=== PATIENT | male | born 1940 | race Caucasian/White ===

== ENCOUNTER → 2016-12-16 | Outpatient (CLI) | payer OTHER ==
[~2016-12-16] MED LIST: GADOBUTROL 10 ML VIAL IVP ONE
[2016-12-16 14:36] LABS: CREATININE 0.8 mg/dL (0.7-1.3); GLOMERULAR FILTRATION RATE > 60
== END ==
LOC: FIMAGING 13:36
PROVIDERS: ATTEND Family Medicine
DX: R41.3 Other amnesia (principal)
CPT/HCPCS: 70553; A9585

== ENCOUNTER 2017-11-11 10:38 | Observation (INO) | payer OTHER ==
--- NOTE | 2017-11-11 11:03 | CPEKG ---
Heart Rate: 97 RR Interval: 619 QRSD Interval: 100 QT Interval: 356 QTC Interval: 452 QRS [place]: 41 T Wave [place]: 44 EKG Severity - ABNORMAL ECG - EKG Impression: ATRIAL FIBRILLATION, V-RATE 91-104 EKG Impression: PROBABLE POSTERIOR INFARCT Electronically Signed By: Maine Clarke 11-Nov-2017 20:58:21
[2017-11-11 11:23] LABS: PLATELET COUNT 197 10^3/uL (150-400)
[2017-11-11] MEDS ORDERED: ASPIRIN 81 MG CHEWABLE TAB PO ONE (12:14)
[2017-11-11] MEDS ORDERED: ASPIRIN 81 MG CHEWABLE TAB ONE (12:15)
--- NOTE | 2017-11-11 13:03 | EDPHY ---
H & P Stated Complaint: felt faint /dizzy on golf [place]/resolved now - Personal History Current Tetanus/Diphtheria Vaccine: Yes Tetanus Vaccine Date: 2004 - Medical/Surgical History Hx Asthma: No Hx Chronic Respiratory Disease: No Hx Diabetes: No Hx Cardiac Disease: No Hx Renal Disease: No Hx Cirrhosis: No Hx Alcoholism: No Hx HIV/AIDS: No Hx Splenectomy or Spleen Trauma: No Other PMH: knee surgery - Social History Smoking Status: Former smoker Time Seen by Provider: 11/11/17 11:27 HPI/ROS: Chief complaint: Dizziness History of present illness: This is a 77-year-old male who presents to the emergency department for evaluation of dizziness. Patient was in his usual state of health this morning. He got up, he skipped breakfast and went to play golf. Shortly into his game he started to feel lightheaded and almost fell over. This happened a 2nd time. He sat down and was eventually brought to the emergency department. On my evaluation he states he feels well. He has no symptoms. No report of headache, no chest pain, no shortness of breath, no pain or swelling in the legs. Review of systems: 10 point review of systems was obtained and other than described above was negative (Corona Basurto) - Physical Exam Exam: General Appearance: Alert, no distress. Eyes: Pupils equal and round no pallor or injection. ENT, Mouth: Mucous membranes moist. Respiratory: There are no retractions, lungs are clear to auscultation. Cardiovascular: Irregular rhythm, normal rate. Gastrointestinal: Abdomen is soft and non tender, no masses, bowel sounds normal. Neurological: Alert and oriented x4. Cranial nerves 2-12 grossly intact. Strength and sensation intact and symmetrical. Skin: Warm and dry, no rashes. Musculoskeletal: Neck is supple non tender. Extremities are symmetrical, full range of motion. Psychiatric: Patient is oriented X 3, there is no agitation. (Corona Basurto) Constitutional: Initial Vital Signs Temperature (C) 36.7 C 11/11/17 10:43 Heart Rate 70 11/11/17 10:43 Respiratory Rate 16 11/11/17 10:43 Blood Pressure 125/96 H 11/11/17 10:43 O2 Sat (%) 94 11/11/17 10:43 O2 Delivery Mode Room Air Allergies/Adverse Reactions: CITRUS Allergy (Intermediate, Uncoded 11/11/17 10:42) SNEEZE WINE Allergy (Intermediate, Uncoded 11/11/17 10:42) SNEEZE Home Medications: Medication Instructions Recorded Donepezil HCl [Aricept 5 MG (*)] 5 mg PO DAILY 11/11/17 Herbals/Supplements -Info Only 1 ea PO DAILY 11/11/17 Medical Decision Making ED Course/Re-evaluation: Patient discussed with my secondary supervising physician Dr. Alem Quan. Patient presents to the emergency department essentially with 2 episodes of near -syncope. He is nontoxic. He appears to be in new onset AFib. Initially he is rate controlled. However, his rate is increasing in the emergency room. He is given an aspirin. He will be admitted to Dr. Olivia Cramer to telemetry for further care. The plan has been discussed with the patient who voiced understanding and agreement with it. (Corona Basurto) Differential Diagnosis: Included but limited to hypoglycemia, dehydration, electrolyte abnormality, dehydration, cardiac disturbances/ACS, CVA (Corona Basurto) Other Provider: The patient was evaluated and managed by the Physician Healthcare Administrator. I discussed the patient's presentation and course with the midlevel provider with them and agree with the evaluation. My co-signature indicates that I have reviewed this chart and I agree with the findings and plan of care as documented. I am the secondary supervising physician. (Alem Quan) - Data Points Laboratory Results: Laboratory Results 11/11/17 11:10 11/11/17 11:10 11/11/17 11/11/17 11:10 11:10 WBC 4.55 10^3/uL 10^3/uL (3.80-9.50) RBC 4.29 10^6/uL L 10^6/uL (4.40-6.38) Hgb 14.4 g/dL g/dL (13.7-17.5) Hct 41.6 % % (40.0-51.0) MCV 97.0 fL fL (81.5-99.8) MCH 33.6 pg pg (27.9-34.1) MCHC 34.6 g/dL g/dL (32.4-36.7) RDW 13.2 % % (11.5-15.2) Plt Count 197 10^3/uL 10^3/uL (150-400) MPV 10.0 fL fL (8.7-11.7) Neut % (Auto) 65.7 % % (39.3-74.2) Lymph % (Auto) 22.6 % % (15.0-45.0) [place] % (Auto) 7.5 % % (4.5-13.0) Eos % (Auto) 2.2 % % (0.6-7.6) Baso % (Auto) 0.7 % % (0.3-1.7) Nucleat RBC Rel Count 0.0 % % (0.0-0.2) Absolute Neuts (auto) 2.99 10^3/uL 10^3/uL (1.70-6.50) Absolute Lymphs (auto) 1.03 10^3/uL 10^3/uL (1.00-3.00) Absolute Monos (auto) 0.34 10^3/uL 10^3/uL (0.30-0.80) Absolute Eos (auto) 0.10 10^3/uL 10^3/uL (0.03-0.40) Absolute Basos (auto) 0.03 10^3/uL 10^3/uL (0.02-0.10) Absolute Nucleated RBC 0.00 10^3/uL 10^3/uL (0-0.01) Immature Gran % 1.3 % H % (0.0-1.1) Immature Gran # 0.06 10^3/uL 10^3/uL (0.00-0.10) Sodium 138 mEq/L mEq/L (135-145) Potassium 4.3 mEq/L mEq/L (3.5-5.2) Chloride 102 mEq/L mEq/L (97-110) Carbon Dioxide 25 mEq/l mEq/l (22-31) Anion Gap 11 mEq/L mEq/L (8-16) BUN 18 mg/dL mg/dL (7-23) Creatinine 0.8 mg/dL mg/dL (0.7-1.3) Estimated GFR > 60 Glucose 94 mg/dL mg/dL (70-100) Calcium 9.3 mg/dL mg/dL (8.5-10.4) Troponin I < 0.012 ng/mL ng/mL (0.000-0.034) Medications Given: Diltiazem/Dextrose (Diltiazem 125mg/125ml (Premix)) 125 mls @ 0 mls/hr IV CONT NIYA; Titrate PRN Reason: Protocol Stop: 05/10/18 14:59 Last Admin: 11/11/17 16:28 Dose: 125 mls Discontinued Medications Aspirin (Aspirin) 324 mg PO EDNOW ONE Stop: 11/11/17 12:15 Last Admin: 11/11/17 12:15 Dose: 324 mg Sodium Chloride (Ns) 1,000 mls @ 3,000 mls/hr IV ONCE ONE Stop: 11/11/17 14:18 Last Admin: 11/11/17 14:56 Dose: 1,000 mls Departure - Departure Disposition: [facility] Inpatient Acute Clinical Impression: Afib Qualifiers: Atrial fibrillation type: unspecified Qualified Code(s): I48.91 - Unspecified atrial fibrillation Condition: Good
[2017-11-11] MEDS ORDERED: ACETAMINOPHEN 325 MG TAB PO PRN (13:59)
[2017-11-11] MEDS ORDERED: ONDANSETRON 4 MG/2 ML VIAL IVP PRN (13:59)
[2017-11-11] MEDS ORDERED: NS 1,000 ML IV ONE (13:59)
[2017-11-11] MEDS ORDERED: ONDANSETRON DISINTEGRATING 4 MG TAB PO PRN (13:59)
[2017-11-11] MEDS ORDERED: DILTIAZEM 125 MG in D5W 125 ML IV SCH (14:30)
[2017-11-11] MEDS ORDERED: DILTIAZEM HCL/D5W 125 ML IV SCH (15:00)
--- NOTE | 2017-11-11 17:01 | ECHO ---
[email or web address] [address] [address] Main: [phone] Fax: Transthoracic Echocardiogram Name: JOY ESCOBEDO MR#: [id number] Study Date: 11/11/2017 Study Time: 03:00 PM Date of : 1940 Age: 77 year(s) Height: 195.6 cm (77 in.) Weight: 115.67 kg (255 lb.) BSA: 2.48 m2 Gender: Male Examination: Echo Indication: New onset Atrial Fibrillation Image Quality: Contrast: Requested by: Olivia Cramer BP: 138 mmHg/83 mmHg Heart Rate: Rhythm: Atrial fibrillation Indication: New onset Atrial Fibrillation Procedure Staff Collector Of Port: Michael Alfaro RDCS Reading Physician: Franki Santa MD Requesting Provider: Conclusions: Normal size left ventricle. Borderline concentric LV hypertrophy. EF is 60 %. The mitral valve is normal in appearance and function. The aortic valve is normal in appearance. Trivial aortic valve regurgitation. No aortic valve stenosis is present. The pulmonary artery pressure is normal. No old studies for comparison. Measurements: Chambers Valvular Assessment AV/MV Valvular Assessment TV/PV Normal Normal Normal Name Value Range Name Value Range Name Value Range Ao Isamar (MM): 4.3 cm (2.2 cm-3.7 AV Vmax: 0.85 m/s (1 m/s-1.7 TR Vmax: 2.44 mm/s ( - ) cm) m/s) TR PGmax: 24 mmHg ( - ) IVSd (2D): 1.4 cm (0.6 cm-1.1 AV maxP mmHg ( - ) syst. PAP: 29 mmHg ( - ) cm) LVOT Vmax: 0.87 m/s (0.7 m/s-1.1 PV Vmax: 0.83 m/s (0.6 m/s-0.9 LVDd (2D): 4.6 cm (4.2 cm-5.9 m/s) m/s) cm) MV E Vmax: 0.42 m/s ( - ) PV PGmax: 3 mmHg ( - ) LVDs (2D): 3.1 cm (2.1 cm-4 MV A Vmax: 0.57 m/s ( - ) cm) MV E/A: 0.74 ( - ) LVPWd (2D): 1.2 cm (0.6 cm-1 cm) LVEF (2D): 60 (>=54 %) RVDd(2D): 4.1 cm (1.9 cm-3.8 cmmm) Continued Measurements: Chambers Valvular Assessment AV/MV Valvular Assessment TV/PV Patient: JOY ESCOBEDO Study Date: 11/11/2017 Page 1 of 2 03:00 PM Name Value Name Value Name Value LADs Lon.5 cm MV E' Septal: 0.07 m/s CVP (est.): 5 mmHg LA Area: 23.9 cm2 MV E/E' Septal: 6.00 LA Volume: 76 ml LA Volume Index: 30.6 ml/m2 Findings: Left Ventricle: Normal size left ventricle. Borderline concentric LV hypertrophy. Normal global systolic LV function. EF is 60 %. No regional wall motion abnormality. Diastolic dysfunction is present. . The rhythm is atrial fibrillation.. Right Ventricle: Normal size right ventricle. Left Atrium: The left atrium is normal in size. Right Atrium: The right atrium is normal in size. Mitral Valve: The mitral valve is normal in appearance and function. There is no mitral valve regurgitation. Aortic Valve: The aortic valve is normal in appearance. Trivial aortic valve regurgitation. No aortic valve stenosis is present. Tricuspid Valve: The tricuspid valve is normal in appearance and function. Mild tricuspid regurgitation is present. The pulmonary artery pressure is normal. Pulmonic Valve: The pulmonic valve is normal in appearance and function. Aorta: The aorta is normal. Pericardium: No pericardial effusion. There is pericardial fat. (No Signature Object) Patient: JOY ESCOBEDO Study Date: 11/11/2017 Page 2 of 2 03:00 PM [id number]
[2017-11-12 04:14] LABS: PLATELET COUNT 186 10^3/uL (150-400)
[2017-11-12 08:21] VITALS: RESP 18; TEMP 98.3; O2SAT 92
[2017-11-12] MEDS ORDERED: DONEPEZIL HCL 5 MG TAB PO SCH (09:00)
[2017-11-12] MEDS ORDERED: Herbals/Supplements -Info Only PO SCH (09:00)
[2017-11-12] MEDS ORDERED: ENOXAPARIN 40 MG/0.4 ML SYR SC SCH (09:00)
[2017-11-12] MEDS ORDERED: DILTIAZEM 30 MG TAB PO SCH (09:12)
[2017-11-12] MEDS ORDERED: ASPIRIN 81 MG CHEWABLE TAB PO SCH (09:15)
[2017-11-12 10:03] VITALS: BP 137/92; PULSE 78
--- NOTE | 2017-11-12 17:17 | GDS ---
[f rep st] DISCHARGE SUMMARY DISCHARGE DIAGNOSES: Include: 1. Presyncope. 2. New diagnosis atrial fibrillation. HISTORY OF PRESENT ILLNESS: A 77-year-old male who presents with complaints of presyncopal symptoms while golfing. For details of patient's initial presentation, please see the History and Physical da eli 11/11/2017. CONSULTATIVE SERVICES: Cardiology. PROCEDURES: On 11/11/2017 patient had a transthoracic echocardiogram that shows normal LV size and f unction with borderline concentric LVH. HOSPITAL COURSE: By issue: 1. Atrial fibrillation: Patient did not present with markedly elevated ventricular rates, peaking i n the emergency department in the 120s. He was admitted to the PCU on telemetry, started on a diltia zem drip at a low dose, and did not convert overnight. After discussion with Cardiology and review o f his echocardiogram, the decision was made to treat the patient based on his [id number] score with aspirin and initiate low-dose oral diltiazem at 30 mg b.i.d. he will be sent with a Holter monitor in his home and followed in the outpatient cardiology clinic at the completion of that 1-month monito r for review of his rhythm, as well as discussions about long-term anticoagulation and rate control m edications. 2. Mild dehydration: Patient received fluid resuscitation overnight and has had counseling regardin g maintaining hydration at home. MEDICATIONS AT DISPOSITION: Please reference the medication reconciliation printed on 11/12/2017. FOLLOWUP APPOINTMENTS: Include with Joanne Mendoza after completion of his Holter monitor, as well as with his primary care provider as needed for ongoing management of his medical comorbidities. TIME SPENT: I spent greater than 30 minutes in the planning and coordination of this discharge. /[id number]/MODL
== END 2017-11-12 11:14 | disposition home or self-care (01) ==
LOC: INTOOBSV 12:26 → F2W 13:40
PROVIDERS: ADMIT Hospitalist; ATTEND Hospitalist
PROC: 3E033RZ Introduction of Antiarrhythmic into Peripheral Vein, Percutaneous Approach (ICD-10-PCS; principal; 2017-11-11)
DX: R55 Syncope and collapse (principal); I48.91 Unspecified atrial fibrillation; E86.0 Dehydration; Z87.891 Personal history of nicotine dependence
CPT/HCPCS: 93005; 93306; 99285; G0378; J1650

== ENCOUNTER 2018-03-26 07:29 | Day surgery (SDC) | payer OTHER ==
[2018-03-26] MEDS ORDERED: NS 1,000 ML IV ONE (08:12)
[2018-03-26] MEDS ORDERED: ATROPINE SULFATE 1 MG/10 ML SYR IVP ONE (08:12)
--- NOTE | 2018-03-26 08:17 | CPEKG ---
Heart Rate: 82 RR Interval: 732 QRSD Interval: 104 QT Interval: 392 QTC Interval: 458 QRS [place]: 37 T Wave [place]: 46 EKG Severity - ABNORMAL ECG - EKG Impression: ATRIAL FIBRILLATION, V-RATE 61-104 EKG Impression: PROBABLE POSTERIOR INFARCT Electronically Signed By: Maksim Menchaca 26-Mar-2018 08:19:31
[2018-03-26 08:41] LABS: INR 1.29 (0.83-1.16); PROTIME(PATIENT) 16.3 SEC (12.0-15.0)
--- NOTE | 2018-03-26 08:49 | PDHPUP ---
History & Physical Update H&P update statement: This history and physical update is based on an assessment of the patient which was completed after admission or registration (within 24 hours), but prior to the surgery/procedure. H&P update: H&P reviewed & patient examined, no change in patient's condition since H&P completed
[2018-03-26] MEDS ORDERED: PROPOFOL 200 MG/20 ML VIAL ONE (08:53)
--- NOTE | 2018-03-26 08:56 | POSTANESTH ---
Post Anesthetic Evaluation Cardiovascular Status: Similar to Pre-Op Cond Respiratory Status: Normal, Stable, Similar to Pre-op Cond. Level of Consciousness/Mental Status: Can Participate in Eval, Mildly Sleepy, Arousable Pain Control: Adequate, Prn Tx Ordered Nausea/Vomiting Control: Adequate, Prn Tx Ordered Complications Possibly Related to Anesthesia: None Noted
--- NOTE | 2018-03-26 08:56 | PDANEPAE ---
ANE History of Present Illness TREVER CV ANE Past Medical History - Cardiovascular History Hx Hypertension: No Hx Arrhythmias: Yes Hx Coronary Artery / Peripheral Vascular Disease: No Hx CHF / Valvular Disease: No - Pulmonary History Hx COPD: No Hx Asthma/Reactive Airway Disease: No Hx Recent Upper Respiratory Infection: No Hx Oxygen in Use at Home: No Hx Sleep Apnea: No - Neurologic History Hx Cerebrovascular Accident: No Hx Seizures: No Hx Dementia: No - Endocrine History Hx Diabetes: No - Renal History Hx Renal Disorders: No - Liver History Hx Hepatic Disorders: No - Neurological & Psychiatric Hx Hx Neurological and Psychiatric Disorders: No - Cancer History Hx Cancer: Yes Cancer History Comment: SKIN CANCER - Congenital Disorder History Hx Congenital Disorders: No - GI History Hx Gastrointestinal Disorders: No - Other Health History Other Health History: NEG - Chronic Pain History Chronic Pain: No (KNEES) - Surgical History Prior Surgeries: R KNEE REPLACEMENT 2013. APPENDECTOMY. FX LEG ANE Review of Systems Review of systems is: negative Review of Systems: - Exercise capacity METS (RN): 4 METS ANE Patient History - Allergies Allergies/Adverse Reactions: CITRUS Allergy (Intermediate, Uncoded 11/11/17 10:42) SNEEZE WINE Allergy (Intermediate, Uncoded 11/11/17 10:42) SNEEZE - Home Medications Home medications: home medication list seen and reviewed Home Medications: Donepezil HCl [Aricept 5 MG (*)] 5 mg PO DAILY 11/11/17 [Last Taken 11/11/17] Herbals/Supplements -Info Only 1 ea PO DAILY 11/11/17 [Last Taken Unknown] - NPO status NPO Status: no food or drink >8 hours - Anes Hx Anes Hx: no prior problems - Smoking Hx Smoking Status: Former smoker - Family Anes Hx Family Anes Hx: none ANE Labs/Vital Signs - Labs Result Diagrams: 03/26/18 08:25 - Vital Signs Vital Signs: reviewed preoperatively; see RN documention for details Height: 196 cm Weight: 113.1 kg ANE Physical Exam - Airway Neck exam: FROM Mallampati Score: Class 1 Mouth exam: poor dentition - Pulmonary Pulmonary: no respiratory distress - Cardiovascular Cardiovascular: irregularly irregular - ASA Status ASA Status: II
--- NOTE | 2018-03-26 09:20 | CPEKG ---
Heart Rate: 82 RR Interval: 732 P-R Interval: 232 QRSD Interval: 102 QT Interval: 396 QTC Interval: 463 P [place]: 6 QRS [place]: 17 T Wave [place]: 40 EKG Severity - ABNORMAL ECG - EKG Impression: SINUS RHYTHM EKG Impression: FIRST DEGREE AV BLOCK Electronically Signed By: Maksim Menchaca 26-Mar-2018 13:24:07
== END 2018-03-26 10:30 | disposition home or self-care (01) ==
LOC: FCATH 07:29
PROVIDERS: ATTEND Internal Medicine
PROC: B245ZZ4 Ultrasonography of Left Heart, Transesophageal (ICD-10-PCS; principal; 2018-03-26)
PROC: 5A2204Z Restoration of Cardiac Rhythm, Single (ICD-10-PCS; principal; 2018-03-26)
DX: I48.0 Paroxysmal atrial fibrillation (principal); Z85.828 Personal history of other malignant neoplasm of skin; Z79.01 Long term (current) use of anticoagulants
CPT/HCPCS: J0461; J2704

== ENCOUNTER → 2018-06-18 | Outpatient (CLI) | payer OTHER | LOC: FIMAGING 14:54 | PROVIDERS: ATTEND Internal Medicine Cardiovascular Disease | DX: J44.9 Chronic obstructive pulmonary disease, unspecified (principal); I48.91 Unspecified atrial fibrillation | CPT/HCPCS: 84481-90 ==

== ENCOUNTER 2018-10-06 09:35 | Inpatient (IN) | payer OTHER ==
--- NOTE | 2018-10-06 09:42 | EDPHY ---
H & P Time Seen by Provider: 10/06/18 09:41 HPI/ROS: CHIEF COMPLAINT: Chills vomiting increasing confusion HISTORY OF PRESENT ILLNESS: History of atrial fibrillation on Eliquis. Was seen by his son this morning to be shaky and having chills around 8:00 a.m., when he was at a ceremony for college signing for his grandson. He had episode of vomiting then and says he now feels no nausea. He does feels heart racing. His nausea was better after vomiting. No diarrhea or abdominal pain. No headache or urinary symptoms or chest pain or shortness of breath. He has been described by his son as being a little bit more confused over the last 10 days. No injury or head trauma. REVIEW OF SYSTEMS: Eye: no change in vision ENT: no sore throat Cardiac: Palpitations but no chest pain Pulmonary: no cough or SOB Abdomen: HPI Musculoskeletal: no back pain Skin: no rash Neuro: no headache Constitutional: Shaking earlier : no urinary symptoms A comprehensive 10 point review of systems is otherwise negative aside from elements mentioned in the history of present illness. 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 Eyes: No scleral icterus. ENT, Mouth: Dry mucous membranes. Respiratory: Normal respiratory effort, breath sounds equal, lungs are clear to auscultation. Cardiovascular: Irregular and tachycardic Gastrointestinal: Abdomen is soft and non tender. Neurological: Alert, face symmetric, normal motor and sensory in extremities. Patient is normally conversant, although he does not fully remember the events of this morning. Appears to have some short-term memory deficits. Skin: Warm and dry, no rashes. Musculoskeletal: No peripheral edema. Normal range of motion of the neck. Psychiatric: Not agitated. Emergency Department course/MDM: CT head for confusion with a patient on Eliquis. Tachycardic in atrial fibrillation, will hydrate with IV fluids and start diltiazem drip. With shaking and chills would suspect possible infection will get chest x-ray urinalysis and labs. 1046: Negative head CT per Dr. Jaffe. Ceftriaxone and azithromycin for infiltrate on chest x-ray. Had single episode of blood pressure less than 90, but none subsequently. Did not have SIRS criteria: WBC less than 12, not tachypneic, not febrile, but is tachycardic. Smoking Status: Former smoker Constitutional: Initial Vital Signs Temperature (C) 36.8 C 10/06/18 09:37 Heart Rate 88 10/06/18 09:37 Respiratory Rate 18 10/06/18 09:37 Blood Pressure 107/76 10/06/18 09:37 O2 Sat (%) 94 10/06/18 09:37 O2 Delivery Mode Room Air Allergies/Adverse Reactions: CITRUS Allergy (Intermediate, Uncoded 10/06/18 09:36) SNEEZE WINE Allergy (Intermediate, Uncoded 10/06/18 09:36) SNEEZE Home Medications: Medication Instructions Recorded Donepezil HCl [Aricept 5 MG (*)] 10 mg PO HS 11/11/17 Herbals/Supplements -Info Only 1 ea PO DAILY 11/11/17 Apixaban [Eliquis] 5 mg PO BID #14 tab 03/20/18 [place]-3 Fatty Acids [Fish Oil 1000 1,000 mg PO DAILY 10/06/18 mg (*)] Medical Decision Making - Diagnostics EKG Interpretation: 12-lead EKG interpreted by me; official reading is in computer system. My interpretation is atrial fibrillation rate 117 without ischemic changes. Imaging Results: Imaging Impressions Chest X-Ray 10/06/18 09:55 Impression: Lower lung opacity, atelectasis or pneumonia. Results discussed with KIRSTEN SOLORIO M.D. on 10/06/2018 at 10:40.. Head CT 10/06/18 09:55 Impression: 1. No acute intracranial process. 2. Age-appropriate generalized cerebral volume loss with sequela of chronic microvascular ischemic disease. Findings and recommendations discussed with KIRSTEN SOLORIO at 1046 hour, 10/06/2018. Imaging: Discussed imaging studies w/ scallop dredger Radiologist Consult/Admit Bed Type: [place] [id number] Kidd Critical Care Time: Critical care time spent by me, Dr. Solorio, exclusively with the care of this patient was 40 minutes, exclusive of PA or OFFICE SUPERVISOR time and exclusive of separate procedures. The organ system at risk was infectious and cardiovascular and I ordered IV fluids and antibiotics, multiple diagnostics, IV diltiazem and cardiac monitoring to stabilize the patient and prevent worsening of the patient 's condition. - Data Points Laboratory Results: Laboratory Results 10/06/18 09:50 10/06/18 09:50 10/06/18 10/06/18 10/06/18 09:53 09:50 09:50 WBC RBC Hgb Hct MCV MCH MCHC RDW Plt Count MPV Neut % (Auto) Lymph % (Auto) [place] % (Auto) Eos % (Auto) Baso % (Auto) Nucleat RBC Rel Count Absolute Neuts (auto) Absolute Lymphs (auto) Absolute Monos (auto) Absolute Eos (auto) Absolute Basos (auto) Absolute Nucleated RBC Immature Gran % Immature Gran # RBC/WBC/PLT Morphology Platelet Estimate PT 17.1 SEC H SEC (12.0-15.0) INR 1.38 H (0.83-1.16) APTT 29.1 SEC SEC (23.0-38.0) Sodium Potassium Chloride Carbon Dioxide Anion Gap BUN Creatinine Estimated GFR Glucose Calcium Total Bilirubin 2.0 mg/dL H mg/dL (0.1-1.4) POC Troponin I 0.00 ng/mL ng/mL (0.00-0.08) 10/06/18 10/06/18 09:50 09:50 WBC 11.28 10^3/uL H 10^3/uL (3.80-9.50) RBC 4.43 10^6/uL 10^6/uL (4.40-6.38) Hgb 14.6 g/dL g/dL (13.7-17.5) Hct 44.0 % % (40.0-51.0) MCV 99.3 fL fL (81.5-99.8) MCH 33.0 pg pg (27.9-34.1) MCHC 33.2 g/dL g/dL (32.4-36.7) RDW 13.3 % % (11.5-15.2) Plt Count 199 10^3/uL 10^3/uL (150-400) MPV 10.2 fL fL (8.7-11.7) Neut % (Auto) 87.1 % H % (39.3-74.2) Lymph % (Auto) 3.9 % L % (15.0-45.0) [place] % (Auto) 7.4 % % (4.5-13.0) Eos % (Auto) 0.4 % L % (0.6-7.6) Baso % (Auto) 0.4 % % (0.3-1.7) Nucleat RBC Rel Count 0.0 % % (0.0-0.2) Absolute Neuts (auto) 9.82 10^3/uL H 10^3/uL (1.70-6.50) Absolute Lymphs (auto) 0.44 10^3/uL L 10^3/uL (1.00-3.00) Absolute Monos (auto) 0.83 10^3/uL H 10^3/uL (0.30-0.80) Absolute Eos (auto) 0.05 10^3/uL 10^3/uL (0.03-0.40) Absolute Basos (auto) 0.05 10^3/uL 10^3/uL (0.02-0.10) Absolute Nucleated RBC 0.00 10^3/uL 10^3/uL (0-0.01) Immature Gran % 0.8 % % (0.0-1.1) Immature Gran # 0.09 10^3/uL 10^3/uL (0.00-0.10) RBC/WBC/PLT Morphology TNP Platelet Estimate TNP PT INR APTT Sodium 133 mEq/L L mEq/L (135-145) Potassium 4.1 mEq/L mEq/L (3.5-5.2) Chloride 103 mEq/L mEq/L (97-110) Carbon Dioxide 23 mEq/l mEq/l (22-31) Anion Gap 7 mEq/L mEq/L (6-14) BUN 25 mg/dL H mg/dL (7-23) Creatinine 0.9 mg/dL mg/dL (0.7-1.3) Estimated GFR > 60 Glucose 118 mg/dL H mg/dL (70-100) Calcium 9.2 mg/dL mg/dL (8.5-10.4) Total Bilirubin POC Troponin I Medications Given: Discontinued Medications Diltiazem HCl 125 mg/ Dextrose 125 mls @ 0 mls/hr IV EDNOW ONE; As Directed PRN Reason: Protocol Stop: 10/06/18 09:56 Last Admin: 10/06/18 10:13 Dose: Not Given Sodium Chloride (Ns) 500 mls @ 0 mls/hr IV EDNOW ONE; Wide Open PRN Reason: Protocol Stop: 10/06/18 09:56 Last Admin: 10/06/18 10:00 Dose: 500 mls Diltiazem/Dextrose (Diltiazem 125mg/125ml (Premix)) 125 mls @ 0 mls/hr IV EDNOW ONE; Titrate PRN Reason: Protocol Stop: 10/06/18 10:31 Last Admin: 10/06/18 10:17 Dose: 125 mls Azithromycin 500 mg/ Dextrose 255 mls @ 255 mls/hr IV EDNOW ONE PRN Reason: Protocol Stop: 10/06/18 11:51 Last Admin: 10/06/18 11:28 Dose: Not Given Ceftriaxone Sodium/Dextrose (Rocephin 1 Gm (Premix)) 50 mls @ 100 mls/hr IV EDNOW ONE PRN Reason: Protocol Stop: 10/06/18 11:21 Last Admin: 10/06/18 11:10 Dose: 50 mls Azithromycin 500 mg/ Sodium (Chloride) 255 mls @ 255 mls/hr IV EDNOW ONE PRN Reason: Protocol Stop: 10/06/18 12:29 Last Admin: 10/06/18 11:27 Dose: 255 mls Point of Care Test Results: Chemistry 10/06/18 09:53 POC Troponin I 0.00 ng/mL ng/mL (0.00-0.08) Departure - Departure Disposition: [facility] Inpatient Acute Clinical Impression: Atrial fibrillation Qualifiers: Atrial fibrillation type: paroxysmal Qualified Code(s): I48.0 - Paroxysmal atrial fibrillation Pneumonia Qualifiers: Pneumonia type: due to unspecified organism Laterality: left Lung location: lower lobe of lung Qualified Code(s): J18.1 - Lobar pneumonia, unspecified organism Condition: Fair
[2018-10-06] MEDS ORDERED: NS 500 ML IV ONE (09:55)
[2018-10-06] MEDS ORDERED: DILTIAZEM 125 MG in D5W 125 ML IV ONE (09:55)
--- NOTE | 2018-10-06 09:59 | CPEKG ---
Test Reason : OPEN Blood Pressure : / mmHG Vent. Rate : 117 BPM Atrial Rate : 152 BPM P-R Int : 128 ms QRS Dur : 099 ms QT Int : 339 ms P-R-T Axes : 000 024 049 degrees QTc Int : 473 ms Atrial fibrillation Confirmed by Santi Hussein ([id number]) on 10/06/2018 9:59:07 AM Referred By: Santi Hussein Confirmed By:Santi Hussein
[2018-10-06 10:03] LABS: PLATELET COUNT 199 10^3/uL (150-400)
[2018-10-06] MEDS ORDERED: DILTIAZEM HCL/D5W 125 ML IV ONE (10:30)
[2018-10-06] MEDS ORDERED: AZITHROMYCIN IV 500 MG in D5W 250 ML IV ONE (10:52)
[2018-10-06 11:11] LABS: INR 1.38 (0.83-1.16); PROTIME(PATIENT) 17.1 SEC (12.0-15.0)
[2018-10-06] MEDS ORDERED: AZITHROMYCIN IV 500 MG in NS 250 ML IV ONE (11:30)
[2018-10-06] MEDS ORDERED: ONDANSETRON DISINTEGRATING 4 MG TAB PO PRN (12:30)
[2018-10-06] MEDS ORDERED: ONDANSETRON 4 MG/2 ML VIAL IVP PRN (12:30)
[2018-10-06] MEDS ORDERED: ACETAMINOPHEN 325 MG TAB PO PRN (12:30)
--- NOTE | 2018-10-06 13:04 | GHP ---
[f rep st] HISTORY AND PHYSICAL DATE OF ADMISSION: 10/06/2018 The patient is a pleasant 78-year-old gentleman with a history of atrial fibrillation and mild clarice ia, who presents with episode of rigors in the setting of a week of possible increasing confusion. He was out at an event with a son and grandson, had an episode of rigors and confusion and vomiting. He has not had diarrhea. He has not had productive cough. He did get a flu shot this year. He did not have fevers or chills prior to this. He has not had lower extremity edema. His atrial fibrillation rate is typically well controlled. He is maintained on Eliquis. REVIEW OF SYSTEMS: Complete 10-point review of systems conducted, negative except as noted in the HP I. PAST MEDICAL HISTORY: Atrial fibrillation, mild dementia. SOCIAL HISTORY: Rare alcohol. No tobacco. He is originally from [place]. 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 ALLERGIES: [place] and wine. MEDICATIONS: Eliquis, donepezil, fish oil. FAMILY HISTORY: Parents . PHYSICAL EXAMINATION: VITAL SIGNS: Temp 36.8, blood pressure 107/76, pulse 80, breathing 18 times a minute, 94% on room air. Pulse ranges from 88-114. GENERAL: No acute distress. HEENT: Sclerae a nicteric. Oropharynx clear. Mucous membranes moist. NECK: Supple without lymphadenopathy or JVD. LUNGS: Clear to auscultation bilaterally. Some faint crackles at the bases bilaterally. HEART: S 1, S2. Irregularly irregular without murmur. ABDOMEN: Soft, nontender, nondistended. LOWER EXTREM ITIES: No edema. Calves are nontender. SKIN: Without rash. NEUROLOGIC: Exam is nonfocal. LABS: White count 11.3 which is high, hematocrit 44, platelets are 199,000. There is a left shift. INR is 1.4. Venous lactate 1.7. Sodium 133, potassium 4.1, chloride 103, bicarb 23, BUN 25, creati nine 0.9, glucose 118, bilirubin is 2.0, troponin 0.00. Chest x-ray interpreted by dc shows possible lower lung zone opacity seen best on the lateral. Noncontrast head CT shows age-appropriate atrophy . EKG interpreted by dc shows atrial fibrillation at 117 with normal axis and intervals. No ST or T -wave changes. I discussed the case Dr. Santi Hussein in the Emergency Department. ASSESSMENT/PLAN: An 78-year-old gentleman who presents with episode of rigors, increasing confusion and likely community-acquired pneumonia. 1. Pneumonia. The patient has episode of rigors, some confusion, and vomiting that was not post-tus sive emesis by history. This is probably consistent with pneumonia. He was started on ceftriaxone a nd azithromycin in the Emergency Department. We will switch this to ceftriaxone, doxycycline. Given the fact he is on Aricept, prolonged QT. Will also send a respiratory viral panel. 2. Episode of vomiting. There is no diarrhea. Should it develop, we will add a GI pathogen panel. 3. Increasing confusion. This is likely a toxic metabolic encephalopathy consistent with intercurre nt medical illness. We will follow. 4. Atrial fibrillation, slightly more rapid than usual. He received some diltiazem in the Emergency Department. We will follow. He is euvolemic. DISPOSITION: 1. Inpatient status. 2. Prophylaxis. 3. He is already anticoagulated. 4. SCDs. /[id number]/MODL
--- NOTE | 2018-10-06 13:45 | PDMN ---
Medical Necessity Medical necessity: MCG M282 CAP: 78 yo w/ rigors, increased confusion and vomiting. Eval reveals CAP. Pt became hypotensive and tachycardic. O2 needed to keep sats>90%. IV antibx started. Anticipate>2MN for ongoing monitoring and tx. Meets MCG IP criteria for CAP w/ hypoxemia, hemodynamic instability and AMS. Hx afib, mild dementia
[2018-10-06] MEDS ORDERED: ZOLPIDEM TARTRATE 5 MG TAB PO PRN (19:54)
[2018-10-06] MEDS: APIXABAN 5 MG TAB PO SCH (20:32)
[2018-10-06] MEDS: DOXYCYCLINE INJ 100 MG in NS 250 ML IV SCH (20:35)
[2018-10-06] MEDS ORDERED: DONEPEZIL HCL 5 MG TAB PO SCH (21:00)
[2018-10-07 04:24] LABS: PLATELET COUNT 160 10^3/uL (150-400)
[2018-10-07 08:33] VITALS: BP 136/93
[2018-10-07] MEDS ORDERED: Herbals/Supplements -Info Only PO SCH (09:00)
[2018-10-07] MEDS ORDERED: OMEGA-3 FATTY ACIDS 1,000 MG CAP PO SCH (09:00)
[2018-10-07] MEDS: APIXABAN 5 MG TAB PO SCH (09:22)
[2018-10-07] MEDS: DOXYCYCLINE INJ 100 MG in NS 250 ML IV SCH (10:06)
--- NOTE | 2018-10-07 13:30 | HOSPPROG ---
Hospitalist Progress Note Assessment/Plan: 78 yo M w CAP on RA home today quicker than expected recovery Subjective: anxious for dc. ambulated on RA. in sinus Objective: Vital Signs Temp Pulse Resp BP Pulse Ox 36.4 C 86 18 136/93 H 96 10/07/18 04:22 10/07/18 08:30 10/07/18 08:30 10/07/18 08:30 10/07/18 08:30 Microbiology 10/06/18 16:12 Respiratory Panel (PCR) - Final Nasal, Sinus - Swab No Organism Detected By Pcr Laboratory Results 10/07/18 04:10 10/07/18 04:10 10/06/18 10/07/18 10/08/18 05:59 05:59 05:59 Intake Total 1433 Output Total 675 425 Balance 758 -425 PT 17.1 SEC (12.0-15.0) H 10/06/18 09:50 INR 1.38 (0.83-1.16) H 10/06/18 09:50 - Physical Exam Constitutional: no apparent distress, appears nourished Eyes: PERRL, anicteric sclera Ears, Nose, Mouth, Throat: moist mucous membranes, hearing normal Cardiovascular: regular rate and rhythym, no murmur, rub, or gallop Respiratory: no respiratory distress, other (bibasilar crackles) Gastrointestinal: normoactive bowel sounds, soft, non-tender abdomen Genitourinary: no bladder fullness, No landis in urethra Skin: warm, normal color Musculoskeletal: full muscle strength, no muscle tenderness Neurologic: AAOx3 ICD10 Worksheet Patient Problems: Problems Problem Status Onset chronic disease mgmt/transitional care Acute Arthritis of knee Active Primary osteoarthritis of left knee Acute Atrial fibrillation Acute Pneumonia Acute
--- NOTE | 2018-10-07 13:54 | GDS ---
[f rep st] DISCHARGE SUMMARY Please see admission History and Physical by Dr. Clarence Kidd. The patient presented on the an episode of rigors. He had a chest x-ray where the lateral was suggestive of lower lobe infiltr ate. He had a leukocytosis without fever. He did not have sepsis. He was treated for community-acq uired pneumonia with ceftriaxone and doxycycline. He had somewhat rapid atrial fibrillation at about 100 when he presented here and it trended down without intervention. He does not take a wiley agent as an outpatient, although he is anticoagulated. On the first hospital day, was ambulating on room air and feeling well and more alert. He was ambulating independently without unsteadiness. He is discharged home with a prescription to complete a 5-day course of antibiotics of Augmentin and doxycycline. Please note, the patient was admitted inpatient status given his age and morbidities and presence of rigors. He improved more rapidly than anticipated. /[id number]/MODL
--- NOTE | 2018-10-11 16:01 | PQFORM ---
PHYSICIAN QUERY FORM Needs Your Response This query form is being sent to you to assure this patient record is coded properly. Please respond to the question below: SUPERVISOR EVAPORATOR QUESTION: Dear Dr. Kidd, In reviewing this patients medical record, it is noted patient was diagnosed with 'Toxic metabolic encephalopathy.' Patient presented to ER with "Chills, vomiting and increasing confusion." Noted in the H&P patient had "rigors with a week of possible increasing confusion in the setting of pneumonia," and it was later noted the increasing confusion was "likely a toxic metabolic encephalopathy consistent with intercurrent medical illness." After study, should the diagnosis of "Toxic metabolic encephalopathy" be included in the Discharge Summary? ___X__Yes No Unable to determine Other more appropriate diagnosis(please specify) Thank you JEREMY Yanes [facility]/Coding Dept. [phone] INSTRUCTIONS FOR RESPONSE: Answer question by clicking on the "Edit Document" button. Move cursor to area below the stars. When complete, hit "Save." Click on the "Sign" button, then click "Sign" again. Type in your PIN and hit "Enter." MTDD
== END 2018-10-07 14:00 | disposition home or self-care (01) | DRG 193 ==
LOC: OBSVTOIN 12:31 → F2W 13:00
PROVIDERS: ADMIT Internal Medicine; ATTEND Internal Medicine
DX: J18.8 Other pneumonia, unspecified organism (principal); G92 Toxic encephalopathy; Z79.01 Long term (current) use of anticoagulants; I48.91 Unspecified atrial fibrillation; F03.90 Unspecified dementia, unspecified severity, without behavioral disturbance, psychotic disturbance, mood disturbance, and anxiety; R41.0 Disorientation, unspecified
CPT/HCPCS: 84484-ER; 96365; 96366; J0456; J0696

== ENCOUNTER 2018-10-11 10:48 | Emergency (ER) | payer OTHER ==
[2018-10-11] MEDS ORDERED: NS 1,000 ML IV ONE (11:30)
--- NOTE | 2018-10-11 11:32 | EDPHY ---
H & P Stated Complaint: lethargy, weakness, frequent urination Time Seen by Provider: 10/11/18 11:22 HPI/ROS: CHIEF COMPLAINT: Frequent urination last night, lethargy this morning HISTORY OF PRESENT ILLNESS: The patient is an 78-year-old man with history of atrial fibrillation on Eliquis. He was admitted to the hospital last week with pneumonia and discharged on Augmentin and doxycycline. He finished his antibiotics yesterday. Also has a history of dementia. Family reports that last night he had to get up to go the bathroom 10 times which is unusual for him. No history of prostate issues. He was catheterized when he was in the hospital last week. The patient then seemed tired and lethargic this morning. He now seems back to normal. was concerned because she felt his pulse this morning and states that it was erratic. He has had atrial fibrillation continuously however for the last several years. No fever, no chills, no nausea vomiting or GI symptoms. No dysuria or hematuria. Severity: Moderate Modifying factors: None REVIEW OF SYSTEMS: Constitutional: See HPI denies: chills, fever, recent illness, recent injury EENTM: denies: blurred vision, double vision, nose congestion Respiratory: denies: cough, shortness of breath Cardiac: denies: chest pain, irregular heart rate, lightheadedness, palpitations Gastrointestinal/Abdominal: denies: abdominal pain, diarrhea, nausea, vomiting, blood streaked stools Genitourinary: See HPI Musculoskeletal: denies: joint pain, muscle pain Skin: denies: lesions, rash, jaundice, bruising Neurological: denies: headache, numbness, paresthesia, tingling, dizziness, weakness Hematologic/Lymphatic: denies: blood clots, easy bleeding, easy bruising Immunologic/allergic: denies: HIV/AIDS, transplant 10 systems reviewed and negative except as noted EXAM: GENERAL: Well-appearing, well-nourished and in no acute distress. HEAD: Atraumatic, normocephalic. EYES: Pupils equal round and reactive to light, extraocular movements intact, sclera anicteric, conjunctiva are normal. ENT: TMs normal, nares patent, oropharynx clear without exudates. Moist mucous membranes. NECK: Normal range of motion, supple without lymphadenopathy or JVD. LUNGS: Breath sounds clear to auscultation bilaterally and equal. No wheezes rales or rhonchi. HEART: Irregular but rate controlled, without murmurs, rubs or gallops. ABDOMEN: Soft, nontender, normoactive bowel sounds. No guarding, no rebound. No masses appreciated. BACK: No CVA tenderness, no spinal tenderness, step-offs or deformities EXTREMITIES: Normal range of motion, no pitting or edema. No clubbing or cyanosis. NEUROLOGICAL: Cranial nerves II through XII grossly intact. Normal speech, normal gait. 5/5 strength, normal movement in all extremities, normal sensation , normal reflexes PSYCH: Normal mood, normal affect. SKIN: Warm, dry, normal turgor, no visible rashes or lesions. Source: Patient, Family Exam Limitations: No limitations - Personal History Current Tetanus/Diphtheria Vaccine: Yes Current Tetanus Diphtheria and Acellular Pertussis (TDAP): Yes Tetanus Vaccine Date: 2004 - Medical/Surgical History Hx Asthma: No Hx Chronic Respiratory Disease: No Hx Diabetes: No Hx Cardiac Disease: Yes Hx Renal Disease: No Hx Cirrhosis: No Hx Alcoholism: No Hx HIV/AIDS: No Hx Splenectomy or Spleen Trauma: No Other PMH: knee surgery, a fib - Social History Smoking Status: Former smoker Alcohol Use: Sober Constitutional: Initial Vital Signs Temperature (C) 36.7 C 10/11/18 10:54 Heart Rate 89 10/11/18 10:54 Blood Pressure 114/78 10/11/18 10:54 O2 Sat (%) 97 10/11/18 10:54 O2 Delivery Mode Room Air Allergies/Adverse Reactions: CITRUS Allergy (Intermediate, Uncoded 10/06/18 09:36) SNEEZE WINE Allergy (Intermediate, Uncoded 10/06/18 09:36) SNEEZE Home Medications: Medication Instructions Recorded Donepezil HCl [Aricept 5 MG (*)] 10 mg PO HS 11/11/17 Herbals/Supplements -Info Only 1 ea PO DAILY 11/11/17 Apixaban [Eliquis] 5 mg PO BID #14 tab 03/20/18 [place]-3 Fatty Acids [Fish Oil 1000 1,000 mg PO DAILY 10/06/18 mg (*)] Amoxicillin/Clavulanate Pot 875 mg PO BID #6 tab 10/07/18 [Augmentin 875 MG TAB (*)] Doxycycline Hyclate 100 mg PO BID #7 tab 10/07/18 Medical Decision Making - Diagnostics EKG Interpretation: An EKG obtained and was read and documented in trace view. Please see trace view for full reading and report. Atrial fibrillation, no acute ischemic changes, unchanged from previous ED Course/Re-evaluation: 12:30 p.m. The patient is feeling much better. His son states that he seems much more perky now that he has taken a nap. They suspect that maybe he was lethargic this morning his he did not get much sleep from his frequent urination. His lab work is reassuring. Urinalysis is pending. 1:40 p.m. the patient is completely asymptomatic. He is eager to go home. Some feels comfortable with this. Urinalysis is unremarkable. We will send for cultures and call if abnormal. 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 Differential Diagnosis: Partial list of the Differential diagnosis considered include but were not limited to; urinary tract infection, prostatic hypertrophy, fatigue and although unlikely based on the history and physical exam, I also considered electrolyte abnormality, sepsis, CVA, acute coronary disease. I discussed these differential diagnoses and the plan with the patient as well as the usual and expected course. The patient understands that the diagnosis is provisional and that in medicine we are not always correct and that further workup is often warranted. Usual and customary warnings were given. All of the patient's questions were answered. The patient was instructed to return to the emergency department should the symptoms at all worsen or return, otherwise to followup with the physician as we discussed. - Data Points Laboratory Results: Laboratory Results 10/11/18 11:05 10/11/18 11:05 Microbiology Results: MICROBIOLOGY 10/11/18 12:00 Unspecified Urine Culture - Final Medications Given: Discontinued Medications Sodium Chloride (Ns) 1,000 mls @ 0 mls/hr IV ONCE ONE; Wide Open PRN Reason: Protocol Stop: 10/11/18 11:31 Last Admin: 10/11/18 11:39 Dose: 1,000 mls Point of Care Test Results: Chemistry 10/11/18 11:08 POC Troponin I 0.00 ng/mL ng/mL (0.00-0.08) Departure - Departure Disposition: Home, Routine, Self-Care Clinical Impression: Increased urinary frequency Fatigue Qualifiers: Fatigue type: unspecified Qualified Code(s): R53.83 - Other fatigue Condition: Fair Instructions: Fatigue (ED) Referrals: ESTEFANY KENNY [Primary Care Provider] - As per Instructions Jason Tsai MD [Medical Doctor] - 2-3 days, call for appt.
[2018-10-11 11:36] LABS: PLATELET COUNT 239 10^3/uL (150-400)
--- NOTE | 2018-10-11 11:37 | CPEKG ---
Test Reason : OPEN Blood Pressure : / mmHG Vent. Rate : 095 BPM Atrial Rate : 082 BPM P-R Int : 232 ms QRS Dur : 101 ms QT Int : 364 ms P-R-T Axes : 241 031 057 degrees QTc Int : 458 ms Atrial fibrillation Confirmed by Jed June ([id number]) on 10/11/2018 11:36:21 AM Referred By: PHYSICIAN ED Confirmed By:Jed June
[2018-10-11 13:57] VITALS: BP 129/65
== END 2018-10-11 13:56 | disposition home or self-care (01) ==
DX: R35.0 Frequency of micturition (principal); R53.83 Other fatigue; E86.9 Volume depletion, unspecified
CPT/HCPCS: 84484-ER

== ENCOUNTER → 2018-11-05 | Outpatient (CLI) | payer OTHER | LOC: FCPNEURO 21:00 | PROVIDERS: ATTEND Internal Medicine Sleep Medicine | DX: G47.33 Obstructive sleep apnea (adult) (pediatric) (principal) ==

== ENCOUNTER 2018-12-31 06:15 | Emergency (ER) | payer OTHER ==
--- NOTE | 2018-12-31 07:25 | EDPHY ---
H & P Stated Complaint: increased urination x1week Time Seen by Provider: 12/31/18 06:59 HPI/ROS: CHIEF COMPLAINT: Urinary frequency HISTORY OF PRESENT ILLNESS: 78-year-old male presents with urinary frequency. Several month history of increased urination, especially last night. He woke up several times to urinate. No associated fever, abdominal discomfort, dysuria or urinary hesitancy. No prior history of prostate problems or urinary tract infection. REVIEW OF SYSTEMS: complete 10 point ROS reviewed and is negative except for the noted elements in the HPI Source: Patient - Personal History Current Tetanus/Diphtheria Vaccine: Yes Tetanus Vaccine Date: 2004 - Medical/Surgical History Hx Asthma: No Hx Chronic Respiratory Disease: No Hx Diabetes: No Hx Cardiac Disease: Yes Hx Renal Disease: No Hx Cirrhosis: No Hx Alcoholism: No Hx HIV/AIDS: No Hx Splenectomy or Spleen Trauma: No Other PMH: knee surgery, a fib, - Social History Smoking Status: Former smoker - Physical Exam Exam: General Appearance: Alert, pleasant Eyes: Pupils equal and round, no conjunctival pallor ENT, Mouth: Mucous membranes moist Neck: Normal inspection Respiratory: Lungs are clear to auscultation Cardiovascular: Regular rate and rhythm Gastrointestinal: Abdomen is soft and nontender Neurological: A&O, nonfocal exam Skin: Warm and dry Extremities: Normal inspection Psychiatric: Mood and affect normal Constitutional: Initial Vital Signs Temperature (C) 36.6 C 12/31/18 06:19 Heart Rate 85 12/31/18 06:19 Respiratory Rate 16 12/31/18 06:19 Blood Pressure 139/90 H 12/31/18 06:19 O2 Sat (%) 94 12/31/18 06:19 O2 Delivery Mode Room Air Allergies/Adverse Reactions: CITRUS Allergy (Intermediate, Uncoded 12/31/18 06:21) SNEEZE WINE Allergy (Intermediate, Uncoded 12/31/18 06:21) SNEEZE Home Medications: Medication Instructions Recorded Donepezil HCl [Aricept 5 MG (*)] 10 mg PO HS 11/11/17 Herbals/Supplements -Info Only 1 ea PO DAILY 11/11/17 Apixaban [Eliquis] 5 mg PO BID #14 tab 03/20/18 [place]-3 Fatty Acids [Fish Oil 1000 1,000 mg PO DAILY 10/06/18 mg (*)] Sertraline HCl [Zoloft 100mg (*)] 12/31/18 Medical Decision Making ED Course/Re-evaluation: Bladder scan reveals no postvoid residual. Urinalysis is unremarkable. No evidence of urinary tract infection or urinary retention. No hematuria, do not suspect ureteral calculus. Warning signs discussed. Follow-up with primary care provider. Departure - Departure Disposition: Home, Routine, Self-Care Clinical Impression: Urinary frequency Condition: Good Instructions: Urinary Urgency and Frequency (DC) Referrals: KYMBERLY GONZALEZ [Primary Care Provider] - As per Instructions (Call to make an appointment.)
[2018-12-31 07:39] VITALS: BP 130/86
== END 2018-12-31 07:48 | disposition home or self-care (01) ==
PROC: 4A0D7LZ Measurement of Urinary Volume, Via Natural or Artificial Opening (ICD-10-PCS; principal; 2018-12-31)
DX: R35.0 Frequency of micturition (principal)